=== PATIENT | female | born 1950 | race Caucasian/White ===

== ENCOUNTER → 2018-10-01 | Outpatient (CLI) | payer MEDICARE, OTHER ==
[~2018-10-01] MED LIST: ALPR.25; CALCAVITD PO; Flax Oil1000 MG; L-TYROSINE500 MG PO; MULT50L PO; Nitrofurantoin50 MG; TURMERIC500 M1 PO
[2018-10-03 15:06] LABS: HPV 16 Positive (Negative); HPV 18 Negative (Negative); HPV OTHER HR TYPES Negative (Negative)
== END | disposition home or self-care (01) ==
LOC: LAB 16:30 → LAB SHORT 16:30
PROVIDERS: Obstetrics & Gynecology
DX: Z01.419 Encounter for gynecological examination (general) (routine) without abnormal findings (principal)
CPT/HCPCS: 87624; G0123

== ENCOUNTER → 2018-10-24 | Outpatient (CLI) | payer MEDICARE, OTHER | END | disposition home or self-care (01) | LOC: PLD 12:44 → LAB SHORT 12:44 | DX: R87.618 Other abnormal cytological findings on specimens from cervix uteri (principal) | CPT/HCPCS: 88305 ==

== ENCOUNTER → 2020-05-01 | Outpatient (CLI) | payer MEDICARE, OTHER ==
[2020-05-05 15:12] LABS: HPV 16 Positive (Negative); HPV 18 Negative (Negative); HPV OTHER HR TYPES Negative (Negative)
== END | disposition home or self-care (01) ==
LOC: LAB SHORT 11:08 → LAB 11:08
PROVIDERS: Obstetrics & Gynecology
DX: Z01.419 Encounter for gynecological examination (general) (routine) without abnormal findings (principal); N89.8 Other specified noninflammatory disorders of vagina
CPT/HCPCS: 87070; 87077; 87186; 87205; 87624; G0123

== ENCOUNTER → 2020-06-04 | Outpatient (CLI) | payer MEDICARE, OTHER | LOC: LAB SHORT 13:54 → LAB 13:54 | DX: R87.619 Unspecified abnormal cytological findings in specimens from cervix uteri (principal); D26.0 Other benign neoplasm of cervix uteri; Z88.2 Allergy status to sulfonamides | CPT/HCPCS: 88305 ==

== ENCOUNTER → 2020-12-01 | Outpatient (CLI) | payer MEDICARE, OTHER ==
[2020-12-03 13:11] LABS: HPV 16 Negative (Negative); HPV 18 Negative (Negative); HPV OTHER HR TYPES Negative (Negative)
== END ==
LOC: LAB SHORT 11:24 → LAB 11:24
PROVIDERS: Obstetrics & Gynecology
DX: Z86.19 Personal history of other infectious and parasitic diseases (principal); Z88.2 Allergy status to sulfonamides
CPT/HCPCS: 87624; 88142

== ENCOUNTER → 2021-10-04 | Outpatient (CLI) | payer MEDICARE, OTHER ==
[2021-10-06 08:10] LABS: HPV 16 Negative (Negative); HPV 18 Negative (Negative); HPV OTHER HR TYPES Negative (Negative)
== END | disposition home or self-care (01) ==
LOC: LAB 14:20 → LAB SHORT 14:20
PROVIDERS: Obstetrics & Gynecology
DX: R87.619 Unspecified abnormal cytological findings in specimens from cervix uteri (principal)
CPT/HCPCS: 87624; 88142

== ENCOUNTER 2021-12-03 09:09 | Day surgery (SDC) | payer MEDICARE, OTHER ==
[~2021-12-03] VITALS: Ht 162.6 cm; Wt 58.1 kg
== END 2021-12-03 11:15 | disposition home or self-care (01) ==
LOC: ORSCSDS 09:09
PROVIDERS: Surgery
PROC: 0DJD8ZZ Inspection of Lower Intestinal Tract, Via Natural or Artificial Opening Endoscopic (ICD-10-PCS; principal; 2021-12-03 10:30)
DX: Z12.11 Encounter for screening for malignant neoplasm of colon (principal); Z86.010 Personal history of colon polyps; K57.30 Diverticulosis of large intestine without perforation or abscess without bleeding; Z79.899 Other long term (current) drug therapy
CPT/HCPCS: J2704; J7120

== ENCOUNTER → 2022-05-10 | Outpatient (CLI) | payer MEDICARE, OTHER ==
[2022-05-11 15:11] LABS: HPV 16 Negative (Negative); HPV 18 Negative (Negative); HPV OTHER HR TYPES Negative (Negative)
== END | disposition home or self-care (01) ==
LOC: LAB 13:51 → LAB SHORT 13:51
PROVIDERS: Obstetrics & Gynecology
DX: Z01.419 Encounter for gynecological examination (general) (routine) without abnormal findings (principal)
CPT/HCPCS: 87624; G0145

== ENCOUNTER 2024-03-04 07:39 | Day surgery (SDC) | payer MEDICARE, BC | END 2024-03-17 05:38 | disposition home or self-care (01) | LOC: MOI US 07:39 | DX: C50.412 Malignant neoplasm of upper-outer quadrant of left female breast (principal) | CPT/HCPCS: 19285; 77065; A4648; G0279 ==

== ENCOUNTER 2024-03-14 05:00 | Day surgery (SDC) | payer MEDICARE, BC ==
[~2024-03-14] VITALS: Ht 162.6 cm; Wt 63.2 kg
[2024-03-14] MEDS ORDERED: propofoL 20 ML IV ONE (08:08)
[2024-03-14] MEDS ORDERED: FentaNYL Citrate 50 MCG/ML 2 ML Injection ONE (08:08)
[2024-03-14] MEDS ORDERED: CeFAZolin Sodium 2,000 MG VIAL ONE (08:57)
[2024-03-14] MEDS ORDERED: NS 50 ML IV ONE (08:58)
[2024-03-14] MEDS ORDERED: Lactated Ringer's 1,000 ML IV ONE (09:05)
[2024-03-14] MEDS ORDERED: Methylene Blue 1% 100 MG/10 ML VIAL ONE (09:46)
[2024-03-14] MEDS ORDERED: Bupivacaine 0.5% Inj 50 ML Vial (NON CHARGE) XX ONE (09:58)
--- NOTE | 2024-03-14 10:04 | NUR ---
03/14/24 Lena4 Trever Foote PT GLASSES REMOVED AND PLACED IN PT'S LOCKER. History, Chart, Medications and Allergies reviewed before start of procedure. PT TAKEN TO OR VIA GURN.
[2024-03-14] MEDS ORDERED: ePHEDrine Sulfate 50 MG/ML 1ML Injection ONE (10:13)
[2024-03-14] MEDS ORDERED: Ondansetron HCl 2 MG / ML 2ML Vial ONE (11:34)
[2024-03-14] MEDS ORDERED: Dexamethasone Sod Phos 10 MG/ML 1ML VIAL ONE (11:34)
[2024-03-14] MEDS ORDERED: HYDROcodone 5-APAP 325 TAB ONE (11:39)
[2024-03-14 12:09] VITALS: BP 137/86
== END 2024-03-14 12:10 | disposition home or self-care (01) ==
LOC: ORSCSDS 05:00 → NM 08:30 → ORSCSDS 08:30
PROVIDERS: Surgery
PROC: 07B60ZX Excision of Left Axillary Lymphatic, Open Approach, Diagnostic (ICD-10-PCS; principal; 2024-03-14 10:00)
PROC: 0HBU0ZZ Excision of Left Breast, Open Approach (ICD-10-PCS; principal; 2024-03-14 10:00)
DX: C50.412 Malignant neoplasm of upper-outer quadrant of left female breast (principal); D36.0 Benign neoplasm of lymph nodes; Z17.0 Estrogen receptor positive status [ER+]; Z17.21 Progesterone receptor positive status; Z17.32 Human epidermal growth factor receptor 2 negative status
CPT/HCPCS: 38792; 88307; 88342; A9270; A9520; J0690; J1100; J2405; J2704; J3010; Q9968